=== PATIENT | female | born 2000 | race Caucasian/White ===

== ENCOUNTER 2024-10-23 15:51 | Emergency (ER) | payer OTHER ==
[~2024-10-23] VITALS: Ht 149.9 cm; Wt 79.9 kg
[2024-10-23] MEDS ORDERED: CLEO300C2 PO (17:50)
[2024-10-23] MEDS: IBUPROFEN 600 MG TAB PO ONE (17:53)
[2024-10-23] MEDS: CLINDAMYCIN 150 MG CAPSULE PO ONE (17:53)
[2024-10-23] MEDS: ACETAMINOPHEN 500 MG TAB PO ONE (17:54)
[2024-10-23 19:08] VITALS: BP 114/56; TEMP 97.3; O2SAT 97
== END 2024-10-23 19:10 | disposition home or self-care (01) ==
LOC: M ED 15:51
DX: K02.9 Dental caries, unspecified (principal); Z88.0 Allergy status to penicillin

== ENCOUNTER 2024-10-24 20:52 | Emergency (ER) | payer OTHER ==
[~2024-10-24] VITALS: Ht 149.9 cm; Wt 81.4 kg
[~2024-10-24 20:52] MED LIST: CLEO300C2 PO
[2024-10-24] MEDS: ONDANSETRON 4MG 2ML VIAL IV ONE (22:06)
[2024-10-24] MEDS: CLINDAMYCIN 600 MG in IV 1 EA IV ONE (22:07)
[2024-10-24] MEDS: MORPHINE 2 MG/ML 1 ML VIAL IV PRN (22:07)
[2024-10-24 22:24] LABS: BASO # 0.0 10^3/uL (0.0-0.2); BASO % 0.2 % (0.0-1.0); EOS # 0.1 10^3/uL (0.0-0.5); EOS % 0.9 % (0.0-3.0); LYMPH # 2.3 10^3/uL (1.5-5.0); LYMPH % 19.1 % (24.0-44.0); MONO # 0.6 10^3/uL (0.0-0.8); MONO % 4.7 % (2.0-8.0); NEUTROPHILS # 9.0 10^3/uL (1.5-8.5); NEUTROPHILS % 74.9 % (36.0-66.0); PLATELET COUNT, AUTOMATED 518 10^3/uL (150-450)
[2024-10-24 22:39] VITALS: BP 118/59; TEMP 99.8; O2SAT 97
[2024-10-24 22:56] LABS: ALT/SGPT 18 U/L (7.0-40); AST/SGOT 23 U/L (<34); CALCIUM LEVEL 10.6 MG/DL (8.5-10.1); CARBON DIOXIDE LEVEL 22 MMOL/L (20-31); CHLORIDE LEVEL 105 MMOL/L (98-107); CREATININE FOR GFR 0.60 MG/DL (0.55-1.30); GLOMERULAR FILTRATION RATE > 90.0 (>60); POTASSIUM SERUM 4.0 MMOL/L (3.5-5.1); SODIUM LEVEL 143 MMOL/L (136-145)
[2024-10-24] MEDS: OXYCODONE/APAP 5MG/325MG(HOME DOSE PACK) PO ONE (23:01)
== END 2024-10-24 23:03 | disposition home or self-care (01) ==
LOC: M ED 20:52
DX: K04.7 Periapical abscess without sinus (principal); Z88.0 Allergy status to penicillin
CPT/HCPCS: 80053; 85025; 96365; 96375; 96376; 99284; J0737; J2405